=== PATIENT | female | born 1975 | race Caucasian/White ===

== ENCOUNTER 2016-07-08 20:32 | Emergency (ER) | payer BC ==
[~2016-07-08] VITALS: Ht 160 cm; Wt 64.1 kg
[2016-07-08 21:40] LABS: HEMATOCRIT 39.8 % (36.0-46.0); MCH 29.7 PG (29.0-34.0); MCHC 33.2 G/DL (30.0-36.0); MCV 89.4 FL (83-99); MEAN PLAT.VOLUME 9.4 uM^3 (9.5-12.4); PLATELET COUNT 279 K/uL (156-360); RBC DIS.WIDTH-CV 12.6 % (11.8-14.6); RBC DIS.WIDTH-SD 41.8 % (39-53); RED BLOOD COUNT 4.45 M/uL (3.80-5.20); WHITE BLOOD COUNT 6.7 K/uL (4.1-10.2)
[2016-07-08 21:54] LABS: CHLORIDE 105 mEq/L (99-109); POTASSIUM 3.7 mEq/L (3.7-5.4); SODIUM 139 mEq/L (136-147)
[2016-07-08 21:56] LABS: GLUCOSE 96 mg/dL (70-99)
[2016-07-08 21:57] LABS: ANION GAP 12 MEQ/L (2-14)
[2016-07-08 21:58] LABS: TOTAL BILIRUBIN 0.5 mg/dL (0.0-1.0)
[2016-07-08 21:59] LABS: ALKALINE PHOSPHATASE 66 IU/L (3-129)
[2016-07-08 22:00] LABS: GFR ESTIMATE (CALCULATED) > 59 mL/min/
[2016-07-08 22:01] LABS: UREA NITROGEN (BUN) 11 mg/dL (9-23)
[2016-07-08 22:09] LABS: QUANTITATIVE HCG < 4.0 MIU/ML
[2016-07-09 00:49] VITALS: BP 105/68
[2016-07-10 11:47] LABS: LYME DISEASE SEROLOGY SCREEN NEGATIVE (NEGATIVE)
== END 2016-07-09 00:51 | disposition home or self-care (01) ==
LOC: RME 20:32 → EME 20:32 → RME 07-09 00:51
PROVIDERS: Physician Assistant
DX: R20.2 Paresthesia of skin (principal); R20.0 Anesthesia of skin
CPT/HCPCS: 70496; 70498; 80053; 84702; 85027; 86618; 99281; 99285; J7030